=== PATIENT | male | born 1965 | race Caucasian/White ===

== ENCOUNTER 2024-04-07 17:56 | Emergency (ER) | payer BC, SELFPAY ==
[2024-04-07 17:57] VITALS: BP 150/95
[2024-04-07 18:35] VITALS: BMI 35.8
--- NOTE | 2024-04-07 18:38 | ED.GENMED ---
History of Present Illness
General
Chief Complaint: Musculo-Skeletal Complaint
Source: patient
Exam Limitations: none
Time Seen by Provider: 04/07/24 18:26
Travel History
Have you had any contact with someone who has COVID-19?: No
Do you have any symptoms of coronavirus? Fever > 100 degrees, chills, cough, shortness of breath, sore throat, loss of taste or smell, muscle aches, or headache?: No
History of Present Illness
History of Present Illness:
This is a 58 year old male that comes in with c/o right calf and thigh pain. States that it feels like a bruise. States that this started on Friday. States that he also has this sore feeling in the left chest that comes and goes. Today he felt SOB
with walking. States that this may all be his anxiety as he has to have a Colonoscopy on Friday and has to stop his Eliquis for 2 days. Denies any pain with deep breathing. Denies any fever, chills, chest pain, SOB, abd pain, nausea, vomiting,
diarrhea, headache, dizziness, urinary burning.
Past History
Past History
ED Past Medical History: Other (PE/DVT); Negative HTN or NIDDM
ED Past Surgical History: Orthopedic (Left Thumb surgery, ); Negative Appendectomy
Social History
Tobacco: Non-smoker
Alcohol: None
Drug: None
Personal:
Living: with family
Employment: Employed
Family History
Family History: Other (n/c)
Review of Systems
Review of Systems
All Other Systems: ROS reviewed and negative except as documented in HPI and ROS
Constitutional: Reports no symptoms; Denies fever or chills
EENT: Reports no symptoms
Respiratory: Reports no symptoms; Denies cough or trouble breathing
Cardiac: Reports chest pain (occasionally that i fleeting)
ABD/GI: Reports no symptoms; Denies abdominal pain, nausea, vomiting or diarrhea
: Reports no symptoms
Musculoskeletal: Reports other (Soreness in the right calf and thigh)
Skin: Reports no symptoms
Neurological: Reports no symptoms; Denies dizzy or headache
Psychiatric: Reports no symptoms
Phy Exam
General Physical Exam
General Presentation: well appearing and no apparent distress
General age: appears stated age
General Skin: warm and dry
General Habitus: normal
General Mental: alert
General Hydration: appears well hydrated
ENT Exam
ENT Exam: TM's normal, pharynx normal and neck supple
Eye Exam
Eye Exam: EOMI
Cardiovascular Exam
Cardiovascular Exam: regular rate/rhythm and normal peripheral pulses
Pulmonary Exam
Pulmonary Exam: lungs clear, no respiratory distress, no rales, chest non tender, no crackles, no rhonchi, no wheezing and no cough
Gastrointestinal Exam
Gastrointestinal Exam: normal bowel sounds, non tender, soft, no organomegaly, no pulsatile mass and non distended
Musculoskeletal Exam
Musculoskeletal Exam: full ROM and edema (Nonpitting lower leg swelling slight)
Skin Exam
Skin Exam: normal color, warm/dry, no rash and no petechia
Psychiatric Exam
Psychiatric Exam: normal mood/affect
Course
Orders/Labs/Results
Orders:
Orders
04/07/24 18:36
US Legs, Right [US Periph Venous LOWER Ext RT] Urgent
Comment:
Reason For Exam: Pain right calf and thigh
04/07/24 18:37
CR Chest - 2 Views Urgent
Comment:
Reason For Exam: left sided chest discomfort, SOB
04/07/24 18:41
Complete Blood Count/With Diff Urgent
Comprehensive Metabolic Panel Urgent
D-Dimer Urgent
Troponin I Urgent
04/07/24 18:44
Electrocardiogram (*1) Urgent
Reason for Study: Shortness of Breath
EKG- Treatment ONCE
Abnormal Lab Results
04/07/24
18:41
Absolute Monos (auto) 0.8 H 10^3/uL
(0.1-0.6)
Monocytes % 9.8 H %
(1.7-9.3)
04/07/24 18:41
04/07/24 18:41
Labs unremarkable. D-dimer <0.27, Troponin <0.012
Vital Signs
Initial and Last Documented VS:
Initial Vital Signs
Temp Pulse Resp BP Pulse Ox
98.1 F 79 20 150/95 96
04/07/24 17:57 04/07/24 17:57 04/07/24 17:57 04/07/24 17:57 04/07/24 17:57
Last Documented Vital Signs
Temp Pulse Resp BP Pulse Ox
98.1 F 79 20 150/95 96
04/07/24 17:57 04/07/24 17:57 04/07/24 17:57 04/07/24 17:57 04/07/24 17:57
MDM/Problems Addressed
Differential Diagnosis Includes:
Anxiety, Muscle soreness
MDM/Problems Addressed:
This is a 58 year old male that comes in with c/o soreness in the right calf and thigh. States that he has also had this fleeting left sided chest discomfort. States that today he felt SOB with walking. States that he takes Eliquis 2.5 BID.
Will check labs, Chest x-ray, US leg.
Back into see patient. Explained that his blood work is normal along with the US of the leg and his chest x-ray. D-dimer is also negative. Explained that this may be his anxiety due to the fact that he has to stop his Eliquis for his Colonoscopy.
Will discharge patient home. Patient to return with any concerns.
Chronic conditions affecting care:
history of PE/DVT
Acute Exacerbation and/or Progression of Chronic Illness:
NA
*Radiology
Radiology exam reviewed: preliminary read by ED provider (Chest- Negative for active disease. ) and radiology read reviewed (US-No sonographic evidence for right lower extremity deep venous thrombosis Chest- No acute cardiopulmonary process)
*Pulse Oximetry
Patient hypoxic: no
*Playground Attendant Interpretation
Rate: Playground Attendant- N/A
*Critical Care Note
Total Time (30-74mins, 75-104mins- exclusive of procedures): Not Applicable
ED Attending Note
-
Portions of this chart may have been created with voice recognition software.� Occasional wrong word or��sound alike� substitutions may have occurred due to the inherent limitations of voice recognition software.
Discharge Plan
Departure
Patient Disposition: Home (Routine Discharge)
Date of Disposition: 04/07/24
Time of Disposition: 20:00
Patient with high blood pressure during this ER visit?: Yes
Condition: Good
Covid-19: Not Applicable
Discharge Problem:
Leg pain, right, Anxiety
Instructions: Anxiety, Adult ED, BLOOD PRESSURE
Prescriptions:
No Action
Eliquis 5 mg Tablet
See Rx Instructions .ROUTE .COMPLEX 30 Days Qty: 74 0RF
Rx Instructions:
10mg BID x 1 week, then 5mg BID x 3 weeks. (Starter pack dosing). See separate script for additional months.
Eliquis 5 mg tablet
5 mg PO BID 30 Days Qty: 60 0RF
Rx Instructions:
Begin after initial prescription (Starter pack) dosing is complete
acetaminophen [Tylenol] 325 mg tablet
650 mg PO Q6H PRN (Reason: pain) Qty: 100 0RF
Referrals:
Mayra Petersen CRNP [Family Provider] - Call in 1-3 days for appt
Activity Restrictions/Additional Instructions:
As discussed, your blood work is all normal along with the Ultrasound, chest X-ray and your D-dimer. This may all be related to anxiety due to the fact that you have your Colonscopy coming up. Please follow up with the family doctor. IF YOU HAVE ANY
OTHER CONCERNS PLEASE RETURN TO THE EMERGENCY ROOM.
Interventions
Interventions:
*Risk Screen - Suicide Last Done: 04/07/24 17:57
*General Assessment Last Done: 04/07/24 17:57
*Neglect/Abuse Screening Last Done: 04/07/24 17:57
ED- Fall Risk Assessment Last Done: 04/07/24 18:55
*ED COVID-19 Vaccine History Last Done: 04/07/24 18:37
ED- Cardiac Assessment Last Done: 04/07/24 19:52
ED-Musculoskeletal Assessment Last Done: 04/07/24 18:55
ED- Pulmonary Assessment Last Done: 04/07/24 18:55
Discharge Date and Time
Print Language: LIBYAN
[2024-04-07 19:00] LABS: % Basophils 0.7 % (0-2); % Eosinophils 1.7 % (0-6); % Immature Granulocytes 0.4 % (0-0.5); % Lymphocytes 25.4 % (20.5-51.1); % Monocytes 9.8 % (1.7-9.3); Absolute Basophils 0.1 10^3/uL (0-0.2); Absolute Eosinophils 0.1 10^3/uL (0-0.7); Absolute Lymphocytes 2.1 10^3/uL (1.2-3.4); Absolute Monocytes 0.8 10^3/uL (0.1-0.6); Absolute Neutrophils 5.1 10^3/uL (1.4-6.5); Hematocrit 42.6 % (39.0-52.0); Mean Corp Hgb Conc. 35.2 g/dL (33.0-37.0); Mean Corpuscular Hgb 30.6 pg (27.0-31.0); Mean Corpuscular Volume 86.9 fL (80.0-94.0); Mean Platelet Volume 10.3 fL (7.4-10.4); Nucleated Red Blood Cells % 0 % (-); Platelet Count 253 10^3/uL (130-400); Red Cell Dist. Width 12.1 % (11.5-14.5); White Blood Cell Count 8.2 10^3/uL (4.8-10.8)
[2024-04-07 19:15] LABS: D-Dimer < 0.27 ug/mlFEU (0.00-0.50)
[2024-04-07 19:18] LABS: ALT (SGPT) 16 U/L (0-50); AST (SGOT) 24 U/L (17-59); Albumin 3.8 g/dl (3.5-5.0); Alkaline Phosphatase 72 U/L (38-126); Blood Urea Nitrogen 14 mg/dl (9-20); Calcium 9.4 mg/dl (8.4-10.2); Carbon Dioxide 25 mmol/L (22-30); Chloride 105 mmol/L (98-107); Estimated Creatinine Clearance 92 ml/min; Glucose 91 mg/dl (70-99); Potassium 4.2 mmol/L (3.5-5.1); Sodium 138 mmol/L (135-145); Total Bilirubin 0.6 mg/dl (0.2-1.3); Total Protein 6.4 g/dl (6.3-8.2); eGFR > 60.00
[2024-04-07 19:29] LABS: Troponin I < 0.012 ng/ml
[2024-04-07 20:47] VITALS: BP 142/82
[2024-04-07 20:50] VITALS: BP 142/82
== END 2024-04-07 20:51 | disposition home or self-care (01) ==
LOC: EMR 17:56
PROVIDERS: Clinical Nurse Specialist Family Health; EMERGENCY PHYSICIAN Emergency Medicine; FAMILY PHYSICIAN Nurse Practitioner Adult Health
DX: M79.661 Pain in right lower leg (principal); M79.651 Pain in right thigh; F41.9 Anxiety disorder, unspecified; Z86.711 Personal history of pulmonary embolism; Z86.718 Personal history of other venous thrombosis and embolism; Z90.49 Acquired absence of other specified parts of digestive tract
CPT/HCPCS: 99284; 71046; 80053; 84484; 85025; 85379; 93005; 93971

== ENCOUNTER → 2024-04-13 06:20 | Day surgery (SDC) | payer BC, SELFPAY | LOC: GI 06:20 | PROVIDERS: ATTENDING PHYSICIAN Internal Medicine; FAMILY PHYSICIAN Nurse Practitioner Adult Health | DX: D12.2 Benign neoplasm of ascending colon (principal); K57.30 Diverticulosis of large intestine without perforation or abscess without bleeding; K64.9 Unspecified hemorrhoids; Z83.710 Family history of adenomatous and serrated polyps | CPT/HCPCS: 45385; 88305 ==

== ENCOUNTER → 2025-09-08 06:47 | Outpatient (REF) | payer BC, SELFPAY | LOC: RAD 06:47 | PROVIDERS: ATTENDING PHYSICIAN Nurse Practitioner Adult Health | DX: R22.1 Localized swelling, mass and lump, neck (principal) | CPT/HCPCS: 76536 ==